=== PATIENT | female | born 1960 | race African-American/Black ===

== ENCOUNTER 2018-05-28 15:41 | Emergency (ER) | payer OTHER ==
[~2018-05-28] VITALS: Ht 160 cm; Wt 50.0 kg
[~2018-05-28 15:41] MED LIST: AMLO-511 PO; FOLI1 PO; LISI-662 PO; OXYC-38 PO
[2018-05-28] MEDS ORDERED: OxyCODONE HCL/ACETAMINOPHEN 5-325 MG TABLET PO ONE (19:00)
[2018-05-28 19:08] VITALS: BP 127/76
== END 2018-05-28 19:34 | disposition home or self-care (01) ==
LOC: EMS 15:42
DX: G89.29 Other chronic pain (principal); M54.5 Low back pain; F17.210 Nicotine dependence, cigarettes, uncomplicated; Z88.0 Allergy status to penicillin; Z88.6 Allergy status to analgesic agent
CPT/HCPCS: 99283; 99406

== ENCOUNTER 2018-07-03 06:18 | Emergency (ER) | payer OTHER ==
[~2018-07-03] VITALS: Ht 160 cm; Wt 47.7 kg
[2018-07-03] MEDS ORDERED: CALC-888 PO (06:27)
[2018-07-03] MEDS ORDERED: BECL10.62 PO (06:27)
[2018-07-03] MEDS ORDERED: MELO-108 PO (06:27)
[2018-07-03] MEDS ORDERED: CHOL200059 PO (06:27)
[2018-07-03] MEDS ORDERED: ALEN70TA69 PO (06:27)
[2018-07-03 06:34] VITALS: BP 148/75
[2018-07-03] MEDS ORDERED: OxyCODONE HCL/ACETAMINOPHEN 5-325 MG TABLET PO ONE (07:15)
== END 2018-07-03 08:01 | disposition home or self-care (01) ==
LOC: EMS 06:25
DX: M54.5 Low back pain (principal); M25.552 Pain in left hip; G89.29 Other chronic pain; F17.210 Nicotine dependence, cigarettes, uncomplicated; Z88.0 Allergy status to penicillin; Z88.6 Allergy status to analgesic agent; Z79.899 Other long term (current) drug therapy
CPT/HCPCS: 99283; 99406

== ENCOUNTER 2018-08-23 01:19 | Emergency (ER) | payer OTHER ==
[~2018-08-23] VITALS: Ht 160 cm; Wt 105.0 kg
[~2018-08-23 01:19] MED LIST changes: +ALEN70TA69 PO; +BECL10.62 PO; +CALC-888 PO; +CHOL200059 PO; +MELO-108 PO; -OXYC-38 PO
[2018-08-23 01:48] VITALS: BP 141/83
[2018-08-23] MEDS ORDERED: OxyCODONE HCL/ACETAMINOPHEN 5-325 MG TABLET PO ONE (02:00)
== END 2018-08-23 02:30 | disposition home or self-care (01) ==
LOC: EMS 01:20
DX: M16.0 Bilateral primary osteoarthritis of hip (principal); G89.29 Other chronic pain; F17.210 Nicotine dependence, cigarettes, uncomplicated; Z88.0 Allergy status to penicillin; Z88.6 Allergy status to analgesic agent

== ENCOUNTER 2018-09-26 08:21 | Emergency (ER) | payer OTHER ==
[~2018-09-26] VITALS: Ht 160 cm; Wt 50.0 kg
[2018-09-26] MEDS ORDERED: ALBUTEROL SULFATE 2.5 MG/0.5 ML NEB SOLUTION NEB ONE ×2 (08:35→09:15)
[2018-09-26] MEDS ORDERED: IPRATROPIUM BROMIDE 0.5 MG/2.5 ML NEB SOLUTION NEB ONE ×2 (08:35→09:15)
[2018-09-26] MEDS ORDERED: 0.9% SODIUM CHLORIDE 5 ML NEB SOLUTION NEB ONE (08:36)
[2018-09-26] MEDS ORDERED: PredniSONE 20 MG TABLET PO ONE (09:15)
[2018-09-26 11:01] VITALS: BP 166/76
== END 2018-09-26 11:02 | disposition home or self-care (01) ==
LOC: EMS 08:22
DX: J44.9 Chronic obstructive pulmonary disease, unspecified (principal); F17.210 Nicotine dependence, cigarettes, uncomplicated; Z88.0 Allergy status to penicillin; Z88.6 Allergy status to analgesic agent; Z79.899 Other long term (current) drug therapy
CPT/HCPCS: 94640; 99283; J7512

== ENCOUNTER 2018-11-05 12:14 | Emergency (ER) | payer OTHER ==
[~2018-11-05] VITALS: Ht 160 cm; Wt 50.0 kg
[~2018-11-05 12:14] MED LIST changes: +ALEN70TA19 PO; -ALEN70TA69 PO
[2018-11-05 12:16] VITALS: BP 151/90
[2018-11-05] MEDS ORDERED: OxyCODONE HCL/ACETAMINOPHEN 10-325 MG TABLET PO ONE (12:45)
== END 2018-11-05 13:14 | disposition home or self-care (01) ==
LOC: EMS 12:15
DX: M25.551 Pain in right hip (principal); M25.552 Pain in left hip; G89.29 Other chronic pain; I10 Essential (primary) hypertension; F17.210 Nicotine dependence, cigarettes, uncomplicated; Z88.0 Allergy status to penicillin; Z88.6 Allergy status to analgesic agent; Z79.899 Other long term (current) drug therapy
CPT/HCPCS: 99406

== ENCOUNTER 2018-11-11 19:33 | Emergency (ER) | payer OTHER ==
[~2018-11-11] VITALS: Ht 154.9 cm; Wt 63.6 kg
[2018-11-11] MEDS ORDERED: OxyCODONE HCL/ACETAMINOPHEN 5-325 MG TABLET PO ONE (20:30)
[2018-11-11 20:46] VITALS: BP 127/93
== END 2018-11-11 20:47 | disposition home or self-care (01) ==
LOC: EMS 19:34
DX: R07.89 Other chest pain (principal); M25.552 Pain in left hip; R22.2 Localized swelling, mass and lump, trunk; G89.29 Other chronic pain; M25.551 Pain in right hip; I10 Essential (primary) hypertension; F17.210 Nicotine dependence, cigarettes, uncomplicated; Z88.6 Allergy status to analgesic agent; Z88.0 Allergy status to penicillin; Z79.899 Other long term (current) drug therapy

== ENCOUNTER 2019-07-17 20:20 | Inpatient (IN) | payer MEDICAID, OTHER ==
[~2019-07-17] VITALS: Ht 157.5 cm; Wt 47.3 kg
[~2019-07-17 20:20] MED LIST changes: -ALEN70TA19 PO; -AMLO-511 PO; +AMLO5TAB9 PO; -CALC-888 PO
[2019-07-18] MEDS ORDERED: MORPHINE SULFATE 4 MG/ML SYRINGE IVP ONE (00:15)
[2019-07-18] MEDS ORDERED: HYDROmorphone 2 MG/ML SYRINGE IVP ONE (04:15)
[2019-07-18] MEDS ORDERED: ACETAMINOPHEN 325 MG TABLET PO PRN ×2 (05:15→07:30)
[2019-07-18] MEDS ORDERED: ONDANSETRON HCL 4 MG/2 ML VIAL IVP PRN ×2 (05:15→07:30)
[2019-07-18] MEDS ORDERED: 0.9% SODIUM CHLORIDE 10 ML SYRINGE IVP PRN ×2 (05:15→07:30)
[2019-07-18 05:33] LABS: BASOPHILS % (AUTO) 0.8 % (0.0-2.0); EOSINOPHILS % (AUTO) 3.9 % (1.0-6.0); HEMATOCRIT 36.8 % (36-46); HEMOGLOBIN 12.4 g/dL (12.0-16.0); LYMPHOCYTES # (AUTO) 1.8 K/uL (1.0-4.8); LYMPHOCYTES % (AUTO) 31.9 % (22.0-44.0); MEAN CORPUSCULAR HEMOGLOBIN 32.1 pg (26.0-34.0); MEAN CORPUSCULAR HGB CONC 33.7 G/dL (31.0-37.0); MEAN CORPUSCULAR VOLUME 95 fL (80-100); MONOCYTES # (AUTO) 0.3 K/uL (0.1-1.0); MONOCYTES % (AUTO) 4.8 % (2.0-9.0); NEUTROPHILS # (AUTO) 3.3 K/uL (1.8-7.7); NEUTROPHILS % (AUTO) 58.6 % (40.0-70.0); PLATELET COUNT (AUTO) 195 K/uL (150-450); RED BLOOD CELL COUNT(AUTO) 3.86 MIL/uL (4.00-5.20); RED CELL DISTRIBUTION WIDTH 15.1 % (11.5-14.5)
[2019-07-18 05:43] LABS: ANION GAP 8 mmol/L (8-16); CALCIUM, TOTAL 8.7 mg/dL (8.8-10.5); CARBON DIOXIDE 27 mmol/L (22-29); CHLORIDE 106 mmol/L (98-107); CREATININE 0.76 mg/dL (0.60-1.30); GLOMERULAR FILTR. RATE CALC > 60 mL/min (>60); GLUCOSE,RANDOM 89 mg/dL (70-110); POTASSIUM 3.4 mmol/L (3.5-5.1); SODIUM SERUM 141 mmol/L (136-145); UREA NITROGEN, BLOOD 8 mg/dL (7-18)
[2019-07-18 05:50] LABS: ALANINE AMINOTRANSFERASE 17 U/L (12-78); ALBUMIN 3.1 g/dL (3.4-5.0); ALKALINE PHOSPHATASE 69 U/L (46-116); ASPARTATE AMINOTRANSFERASE 19 U/L (15-37); BILIRUBIN,TOTAL 0.3 mg/dL (0.1-1.0); TOTAL PROTEIN, SERUM 8.3 g/dL (6.4-8.2)
[2019-07-18 06:05] VITALS: BP 190/101
[2019-07-18] MEDS ORDERED: ZOLPIDEM TARTRATE 5 MG TABLET PO PRN (07:30)
[2019-07-18] MEDS ORDERED: IPRATROPIUM BROMIDE 0.5 MG/2.5 ML NEB SOLUTION NEB PRN (07:30)
[2019-07-18] MEDS ORDERED: ALBUTEROL SULFATE 2.5 MG/0.5 ML NEB SOLUTION NEB PRN (07:30)
[2019-07-18] MEDS: ALBUTEROL SULFATE 2.5 MG/0.5 ML NEB SOLUTION NEB SCH ×3 (08:00→20:00)
[2019-07-18] MEDS: IPRATROPIUM BROMIDE 0.5 MG/2.5 ML NEB SOLUTION NEB SCH ×3 (08:00→20:00)
[2019-07-18 08:03] VITALS: BP 171/101
[2019-07-18] MEDS: CHOLECALCIFEROL (VIT D3) 2,000 UNITS TABLET PO SCH (08:58)
[2019-07-18] MEDS: AmLODIPine BESYLATE 5 MG TABLET PO SCH (08:58)
[2019-07-18] MEDS: LISINOPRIL 20 MG TABLET PO SCH (08:58)
[2019-07-18] MEDS: PANTOPRAZOLE SODIUM 40 MG DR TABLET PO SCH (08:58)
[2019-07-18] MEDS: FOLIC ACID 1 MG TABLET PO SCH (08:58)
[2019-07-18] MEDS: BECLOMETHASONE DIPR HFA 80 MCG/PUFF 10.6 GM INHALER IH SCH ×2 (09:00→21:00)
[2019-07-18] MEDS ORDERED: MORPHINE SULFATE 2 MG/ML SYRINGE IVP PRN (10:00)
[2019-07-18] MEDS ORDERED: INSULIN LISPRO 100 UNITS/ML SQ PRN (11:15)
[2019-07-18] MEDS ORDERED: DEXTROSE 50%-WATER 25 GM/50 ML SYRINGE IVP PRN (11:15)
[2019-07-18] MEDS: CloNIDine HCL 0.1 MG TABLET PO PRN ×2 (11:35→19:47)
[2019-07-18] MEDS ORDERED: POTASSIUM CHLORIDE 20 MEQ ER TABLET PO PRN (11:45)
[2019-07-18] MEDS ORDERED: POTASSIUM CHL 10 MEQ/WATER 50 ML IV PRN (11:45)
[2019-07-18 13:05] VITALS: BP 183/99
[2019-07-18] MEDS: MULTIVITAMINS WITH MINERALS, THERAPEUTIC TABLET PO SCH (13:06)
[2019-07-18] MEDS: MORPHINE SULFATE 2 MG/ML SYRINGE IVP PRN ×3 (15:03→23:18)
[2019-07-18 15:58] VITALS: BP 162/99
[2019-07-18 20:42] VITALS: BP 162/100
[2019-07-18 23:30] VITALS: BP 141/72
[2019-07-19] MEDS: IPRATROPIUM BROMIDE 0.5 MG/2.5 ML NEB SOLUTION NEB SCH ×4 (02:00→20:00)
[2019-07-19] MEDS: ALBUTEROL SULFATE 2.5 MG/0.5 ML NEB SOLUTION NEB SCH ×4 (02:00→20:00)
[2019-07-19 04:00] VITALS: BP 120/62
[2019-07-19 05:51] LABS: BASOPHILS % (AUTO) 0.4 % (0.0-2.0); EOSINOPHILS % (AUTO) 0.7 % (1.0-6.0); HEMATOCRIT 36.5 % (36-46); HEMOGLOBIN 12.5 g/dL (12.0-16.0); LYMPHOCYTES # (AUTO) 1.5 K/uL (1.0-4.8); LYMPHOCYTES % (AUTO) 23.7 % (22.0-44.0); MEAN CORPUSCULAR HEMOGLOBIN 32.4 pg (26.0-34.0); MEAN CORPUSCULAR HGB CONC 34.3 G/dL (31.0-37.0); MEAN CORPUSCULAR VOLUME 95 fL (80-100); MONOCYTES # (AUTO) 0.3 K/uL (0.1-1.0); MONOCYTES % (AUTO) 4.2 % (2.0-9.0); NEUTROPHILS # (AUTO) 4.5 K/uL (1.8-7.7); PLATELET COUNT (AUTO) 193 K/uL (150-450); RED BLOOD CELL COUNT(AUTO) 3.86 MIL/uL (4.00-5.20)
[2019-07-19 06:02] LABS: ANION GAP 7 mmol/L (8-16); CARBON DIOXIDE 28 mmol/L (22-29); CHLORIDE 104 mmol/L (98-107); CREATININE 0.74 mg/dL (0.60-1.30); GLOMERULAR FILTR. RATE CALC > 60 mL/min (>60); GLUCOSE,RANDOM 102 mg/dL (70-110); POTASSIUM 3.6 mmol/L (3.5-5.1); SODIUM SERUM 139 mmol/L (136-145); UREA NITROGEN, BLOOD 13 mg/dL (7-18)
[2019-07-19] MEDS: MORPHINE SULFATE 2 MG/ML SYRINGE IVP PRN ×3 (06:02→21:50)
[2019-07-19 07:28] VITALS: BP 144/74
[2019-07-19] MEDS: BECLOMETHASONE DIPR HFA 80 MCG/PUFF 10.6 GM INHALER IH SCH ×2 (09:00→21:00)
[2019-07-19] MEDS: LISINOPRIL 20 MG TABLET PO SCH (09:35)
[2019-07-19] MEDS: CHOLECALCIFEROL (VIT D3) 2,000 UNITS TABLET PO SCH (09:36)
[2019-07-19] MEDS: MULTIVITAMINS WITH MINERALS, THERAPEUTIC TABLET PO SCH (09:36)
[2019-07-19] MEDS: PANTOPRAZOLE SODIUM 40 MG DR TABLET PO SCH (09:36)
[2019-07-19] MEDS: AmLODIPine BESYLATE 5 MG TABLET PO SCH (09:36)
[2019-07-19] MEDS: FOLIC ACID 1 MG TABLET PO SCH (09:36)
[2019-07-19] MEDS: CloNIDine HCL 0.1 MG TABLET PO PRN (11:19)
[2019-07-19 11:26] VITALS: BP 193/94
[2019-07-19 12:16] LABS: GLUCOMETER DEV NAME(LOC) 6N.2; GLUCOSE,POINT OF CARE 85 MG/DL (70-110)
[2019-07-19 15:54] VITALS: BP 153/94
[2019-07-19 18:11] LABS: GLUCOMETER DEV NAME(LOC) 6N.2; GLUCOSE,POINT OF CARE 183 MG/DL (70-110)
[2019-07-19 19:35] VITALS: BP 122/57
[2019-07-19 23:30] VITALS: BP 137/73
[2019-07-20] MEDS: ALBUTEROL SULFATE 2.5 MG/0.5 ML NEB SOLUTION NEB SCH ×4 (02:00→20:21)
[2019-07-20] MEDS: IPRATROPIUM BROMIDE 0.5 MG/2.5 ML NEB SOLUTION NEB SCH ×4 (02:00→20:21)
[2019-07-20] MEDS: MORPHINE SULFATE 2 MG/ML SYRINGE IVP PRN ×2 (03:15→08:44)
[2019-07-20 03:50] VITALS: BP 173/77
[2019-07-20] MEDS: CloNIDine HCL 0.1 MG TABLET PO PRN (03:51)
[2019-07-20 08:01] VITALS: BP 133/88
[2019-07-20] MEDS: AmLODIPine BESYLATE 5 MG TABLET PO SCH (08:04)
[2019-07-20] MEDS: FOLIC ACID 1 MG TABLET PO SCH (08:04)
[2019-07-20] MEDS: MULTIVITAMINS WITH MINERALS, THERAPEUTIC TABLET PO SCH (08:04)
[2019-07-20] MEDS: PANTOPRAZOLE SODIUM 40 MG DR TABLET PO SCH (08:04)
[2019-07-20] MEDS: CHOLECALCIFEROL (VIT D3) 2,000 UNITS TABLET PO SCH (08:05)
[2019-07-20] MEDS: LISINOPRIL 20 MG TABLET PO SCH (08:05)
[2019-07-20] MEDS: DOCUSATE SODIUM 100 MG CAPSULE PO PRN (08:05)
[2019-07-20] MEDS: BECLOMETHASONE DIPR HFA 40 MCG/PUFF 10.6 GM INHALER IH SCH ×2 (11:23→20:05)
[2019-07-20 11:38] VITALS: BP 112/71
[2019-07-20] MEDS: OxyCODONE HCL/ACETAMINOPHEN 5-325 MG TABLET PO PRN ×2 (11:42→23:09)
[2019-07-20 15:48] VITALS: BP 134/67
[2019-07-20 20:03] VITALS: BP 120/71
[2019-07-20 23:28] VITALS: BP 131/77
[2019-07-21] MEDS: IPRATROPIUM BROMIDE 0.5 MG/2.5 ML NEB SOLUTION NEB SCH ×4 (02:00→20:00)
[2019-07-21] MEDS: ALBUTEROL SULFATE 2.5 MG/0.5 ML NEB SOLUTION NEB SCH ×4 (02:00→20:00)
[2019-07-21] MEDS: OxyCODONE HCL/ACETAMINOPHEN 5-325 MG TABLET PO PRN ×3 (05:43→18:23)
[2019-07-21 05:54] VITALS: BP 161/79
[2019-07-21 07:11] VITALS: BP 121/84
[2019-07-21] MEDS: LISINOPRIL 20 MG TABLET PO SCH (08:09)
[2019-07-21] MEDS: PANTOPRAZOLE SODIUM 40 MG DR TABLET PO SCH (08:09)
[2019-07-21] MEDS: AmLODIPine BESYLATE 5 MG TABLET PO SCH (08:09)
[2019-07-21] MEDS: FOLIC ACID 1 MG TABLET PO SCH (08:10)
[2019-07-21] MEDS: CHOLECALCIFEROL (VIT D3) 2,000 UNITS TABLET PO SCH (08:10)
[2019-07-21] MEDS: MORPHINE SULFATE 2 MG/ML SYRINGE IVP PRN ×3 (08:12→21:10)
[2019-07-21] MEDS: BECLOMETHASONE DIPR HFA 40 MCG/PUFF 10.6 GM INHALER IH SCH ×2 (08:23→21:02)
[2019-07-21] MEDS: MULTIVITAMINS WITH MINERALS, THERAPEUTIC TABLET PO SCH (08:23)
[2019-07-21 11:02] VITALS: BP 118/74
[2019-07-21 15:08] VITALS: BP 103/69
[2019-07-21 19:59] VITALS: BP 105/64
[2019-07-22 00:11] VITALS: BP 108/56
[2019-07-22] MEDS: OxyCODONE HCL/ACETAMINOPHEN 5-325 MG TABLET PO PRN ×4 (00:27→20:45)
[2019-07-22 04:00] VITALS: BP 121/76
[2019-07-22 07:57] VITALS: BP 136/77
[2019-07-22] MEDS: IPRATROPIUM BROMIDE 0.5 MG/2.5 ML NEB SOLUTION NEB SCH ×3 (08:00→20:00)
[2019-07-22] MEDS: ALBUTEROL SULFATE 2.5 MG/0.5 ML NEB SOLUTION NEB SCH ×3 (08:00→20:00)
[2019-07-22] MEDS: BECLOMETHASONE DIPR HFA 40 MCG/PUFF 10.6 GM INHALER IH SCH ×2 (08:01→20:08)
[2019-07-22] MEDS: AmLODIPine BESYLATE 5 MG TABLET PO SCH (08:02)
[2019-07-22] MEDS: FOLIC ACID 1 MG TABLET PO SCH (08:02)
[2019-07-22] MEDS: CHOLECALCIFEROL (VIT D3) 2,000 UNITS TABLET PO SCH (08:02)
[2019-07-22] MEDS: LISINOPRIL 20 MG TABLET PO SCH (08:03)
[2019-07-22] MEDS: PANTOPRAZOLE SODIUM 40 MG DR TABLET PO SCH (08:03)
[2019-07-22] MEDS: MULTIVITAMINS WITH MINERALS, THERAPEUTIC TABLET PO SCH (08:09)
[2019-07-22] MEDS: MORPHINE SULFATE 2 MG/ML SYRINGE IVP PRN ×2 (10:23→17:49)
[2019-07-22 12:35] VITALS: BP 121/65
[2019-07-22 15:49] VITALS: BP 114/74
[2019-07-22 20:17] VITALS: BP 132/69
[2019-07-23 00:40] VITALS: BP 144/77
[2019-07-23] MEDS: MORPHINE SULFATE 2 MG/ML SYRINGE IVP PRN ×2 (00:48→15:42)
[2019-07-23] MEDS: IPRATROPIUM BROMIDE 0.5 MG/2.5 ML NEB SOLUTION NEB SCH ×4 (02:00→19:15)
[2019-07-23] MEDS: ALBUTEROL SULFATE 2.5 MG/0.5 ML NEB SOLUTION NEB SCH ×4 (02:00→19:15)
[2019-07-23 04:55] VITALS: BP 163/98
[2019-07-23] MEDS: CloNIDine HCL 0.1 MG TABLET PO PRN (06:30)
[2019-07-23] MEDS: OxyCODONE HCL/ACETAMINOPHEN 5-325 MG TABLET PO PRN ×3 (06:30→18:49)
[2019-07-23 07:25] VITALS: BP 168/75
[2019-07-23] MEDS: CHOLECALCIFEROL (VIT D3) 2,000 UNITS TABLET PO SCH (08:22)
[2019-07-23] MEDS: BECLOMETHASONE DIPR HFA 40 MCG/PUFF 10.6 GM INHALER IH SCH ×2 (08:22→20:19)
[2019-07-23] MEDS: AmLODIPine BESYLATE 5 MG TABLET PO SCH (08:23)
[2019-07-23] MEDS: LISINOPRIL 20 MG TABLET PO SCH (08:23)
[2019-07-23] MEDS: FOLIC ACID 1 MG TABLET PO SCH (08:23)
[2019-07-23] MEDS: PANTOPRAZOLE SODIUM 40 MG DR TABLET PO SCH (08:23)
[2019-07-23] MEDS: DOCUSATE SODIUM 100 MG CAPSULE PO PRN (08:23)
[2019-07-23] MEDS: MULTIVITAMINS WITH MINERALS, THERAPEUTIC TABLET PO SCH (08:25)
[2019-07-23 12:29] VITALS: BP 131/83
[2019-07-23 16:36] VITALS: BP 132/69
[2019-07-23 19:39] VITALS: BP 110/57
[2019-07-24 00:24] VITALS: BP 136/77
[2019-07-24] MEDS: OxyCODONE HCL/ACETAMINOPHEN 5-325 MG TABLET PO PRN ×3 (00:58→19:54)
[2019-07-24] MEDS: IPRATROPIUM BROMIDE 0.5 MG/2.5 ML NEB SOLUTION NEB SCH ×4 (02:00→19:20)
[2019-07-24] MEDS: ALBUTEROL SULFATE 2.5 MG/0.5 ML NEB SOLUTION NEB SCH ×4 (02:00→19:20)
[2019-07-24 05:05] VITALS: BP 160/78
[2019-07-24] MEDS: MORPHINE SULFATE 2 MG/ML SYRINGE IVP PRN ×2 (05:20→13:03)
[2019-07-24 07:56] VITALS: BP 157/104
[2019-07-24] MEDS: MULTIVITAMINS WITH MINERALS, THERAPEUTIC TABLET PO SCH (09:27)
[2019-07-24] MEDS: PANTOPRAZOLE SODIUM 40 MG DR TABLET PO SCH (09:27)
[2019-07-24] MEDS: BECLOMETHASONE DIPR HFA 40 MCG/PUFF 10.6 GM INHALER IH SCH ×3 (09:27→19:58)
[2019-07-24] MEDS: LISINOPRIL 20 MG TABLET PO SCH (09:27)
[2019-07-24] MEDS: AmLODIPine BESYLATE 5 MG TABLET PO SCH (09:27)
[2019-07-24] MEDS: FOLIC ACID 1 MG TABLET PO SCH (09:27)
[2019-07-24] MEDS: CHOLECALCIFEROL (VIT D3) 2,000 UNITS TABLET PO SCH (09:28)
[2019-07-24 12:28] VITALS: BP 150/69
[2019-07-24 16:11] VITALS: BP 129/75
[2019-07-24 20:13] VITALS: BP 125/70
[2019-07-25] MEDS: ALBUTEROL SULFATE 2.5 MG/0.5 ML NEB SOLUTION NEB SCH ×3 (02:00→14:00)
[2019-07-25] MEDS: IPRATROPIUM BROMIDE 0.5 MG/2.5 ML NEB SOLUTION NEB SCH ×3 (02:00→14:00)
[2019-07-25 04:00] VITALS: BP 128/72
[2019-07-25] MEDS: MORPHINE SULFATE 2 MG/ML SYRINGE IVP PRN ×3 (04:01→16:16)
[2019-07-25 05:02] LABS: BASOPHILS % (AUTO) 0.4 % (0.0-2.0); EOSINOPHILS % (AUTO) 2.9 % (1.0-6.0); HEMATOCRIT 36.2 % (36-46); HEMOGLOBIN 12.1 g/dL (12.0-16.0); LYMPHOCYTES % (AUTO) 32.8 % (22.0-44.0); MEAN CORPUSCULAR HEMOGLOBIN 32.1 pg (26.0-34.0); MEAN CORPUSCULAR HGB CONC 33.5 G/dL (31.0-37.0); MEAN CORPUSCULAR VOLUME 96 fL (80-100); MONOCYTES # (AUTO) 0.5 K/uL (0.1-1.0); MONOCYTES % (AUTO) 7.9 % (2.0-9.0); NEUTROPHILS # (AUTO) 3.5 K/uL (1.8-7.7); PLATELET COUNT (AUTO) 256 K/uL (150-450); RED BLOOD CELL COUNT(AUTO) 3.78 MIL/uL (4.00-5.20); RED CELL DISTRIBUTION WIDTH 15.1 % (11.5-14.5)
[2019-07-25 05:13] LABS: ANION GAP 8 mmol/L (8-16); CALCIUM, TOTAL 8.8 mg/dL (8.8-10.5); CARBON DIOXIDE 28 mmol/L (22-29); CHLORIDE 104 mmol/L (98-107); CREATININE 0.67 mg/dL (0.60-1.30); GLOMERULAR FILTR. RATE CALC > 60 mL/min (>60); GLUCOSE,RANDOM 96 mg/dL (70-110); POTASSIUM 4.1 mmol/L (3.5-5.1); SODIUM SERUM 140 mmol/L (136-145); UREA NITROGEN, BLOOD 17 mg/dL (7-18)
[2019-07-25] MEDS: OxyCODONE HCL/ACETAMINOPHEN 5-325 MG TABLET PO PRN ×2 (07:07→13:49)
[2019-07-25 07:32] VITALS: BP 144/77
[2019-07-25] MEDS: PANTOPRAZOLE SODIUM 40 MG DR TABLET PO SCH (08:02)
[2019-07-25] MEDS: FOLIC ACID 1 MG TABLET PO SCH (08:02)
[2019-07-25] MEDS: MULTIVITAMINS WITH MINERALS, THERAPEUTIC TABLET PO SCH ×2 (08:02→08:10)
[2019-07-25] MEDS: AmLODIPine BESYLATE 5 MG TABLET PO SCH (08:02)
[2019-07-25] MEDS: BECLOMETHASONE DIPR HFA 40 MCG/PUFF 10.6 GM INHALER IH SCH (08:02)
[2019-07-25] MEDS: CHOLECALCIFEROL (VIT D3) 2,000 UNITS TABLET PO SCH (08:02)
[2019-07-25 09:31] VITALS: BP 131/74
[2019-07-25] MEDS: LISINOPRIL 20 MG TABLET PO SCH (11:17)
[2019-07-25 11:45] VITALS: BP_SYST 138; BP_SYST 168; BP_DIAS 78
[2019-07-25] MEDS ORDERED: LOPERAMIDE HCL 2 MG CAPSULE PO ONE (13:15)
[2019-07-25 15:29] VITALS: BP 127/75
== END 2019-07-25 17:45 | DRG 347 ==
LOC: EMS 20:21 → 4E 07-18 05:00
PROVIDERS: ADMIT Internal Medicine; ATTEND Internal Medicine
PROC: 0QS3XZZ Reposition Left Pelvic Bone, External Approach (ICD-10-PCS; principal; 2019-07-18)
DX: S32.19XA Other fracture of sacrum, initial encounter for closed fracture (principal); S32.592A Other specified fracture of left pubis, initial encounter for closed fracture; E87.6 Hypokalemia; F17.210 Nicotine dependence, cigarettes, uncomplicated; I10 Essential (primary) hypertension; W01.10XA Fall on same level from slipping, tripping and stumbling with subsequent striking against unspecified object, initial encounter; Y93.01 Activity, walking, marching and hiking; J44.9 Chronic obstructive pulmonary disease, unspecified; K80.20 Calculus of gallbladder without cholecystitis without obstruction; K59.00 Constipation, unspecified; S33.2XXA Dislocation of sacroiliac and sacrococcygeal joint, initial encounter; G89.4 Chronic pain syndrome; M16.0 Bilateral primary osteoarthritis of hip; Z82.49 Family history of ischemic heart disease and other diseases of the circulatory system; Y92.488 Other paved roadways as the place of occurrence of the external cause; Y99.8 Other external cause status; Z88.6 Allergy status to analgesic agent; Z88.0 Allergy status to penicillin; Z79.899 Other long term (current) drug therapy
CPT/HCPCS: 72100; 72131; 73503; 83735; 84132; 94640; 96374; 96375; 96376; 97116; 97162; 97166; 97530; 97535; G0378; J1170; J2270; J2405; J3535

== ENCOUNTER 2019-08-03 10:27 | Emergency (ER) | payer MEDICAID ==
[~2019-08-03] VITALS: Ht 162.6 cm; Wt 40.9 kg
[~2019-08-03 10:27] MED LIST changes: -MELO-108 PO
[2019-08-03] MEDS ORDERED: OxyCODONE HCL 5 MG IR TABLET PO ONE (11:00)
[2019-08-03] MEDS ORDERED: ZOLP5 PO (11:33)
[2019-08-03] MEDS ORDERED: PANT40TA25 PO (11:33)
[2019-08-03 11:58] LABS: ANION GAP 7 mmol/L (8-16); CALCIUM, TOTAL 8.6 mg/dL (8.8-10.5); CARBON DIOXIDE 28 mmol/L (22-29); CHLORIDE 107 mmol/L (98-107); CREATININE 0.72 mg/dL (0.60-1.30); GLOMERULAR FILTR. RATE CALC > 60 mL/min (>60); GLUCOSE,RANDOM 79 mg/dL (70-110); SODIUM SERUM 142 mmol/L (136-145); UREA NITROGEN, BLOOD 18 mg/dL (7-18)
[2019-08-03] MEDS ORDERED: HYDROmorphone 2 MG/ML SYRINGE IVP ONE (12:30)
[2019-08-03] MEDS ORDERED: IOVERSOL 350 MG/ML 100 ML VIAL ONE (12:34)
[2019-08-03] MEDS ORDERED: SODIUM CHLORIDE 0.9% 100 ML ONE (12:34)
[2019-08-03 15:07] VITALS: BP 134/71
== END 2019-08-03 15:20 | disposition home or self-care (01) ==
LOC: EMS 10:28
DX: S32.592A Other specified fracture of left pubis, initial encounter for closed fracture (principal); S32.19XA Other fracture of sacrum, initial encounter for closed fracture; I10 Essential (primary) hypertension; G89.29 Other chronic pain; M54.9 Dorsalgia, unspecified; J44.9 Chronic obstructive pulmonary disease, unspecified; K21.9 Gastro-esophageal reflux disease without esophagitis; M19.90 Unspecified osteoarthritis, unspecified site; F17.210 Nicotine dependence, cigarettes, uncomplicated; Z98.890 Other specified postprocedural states; Z79.899 Other long term (current) drug therapy; Z88.0 Allergy status to penicillin; Z88.6 Allergy status to analgesic agent; W18.39XA Other fall on same level, initial encounter; Y93.89 Activity, other specified; Y92.89 Other specified places as the place of occurrence of the external cause; Y99.8 Other external cause status
CPT/HCPCS: 36415; 73701; 74177; 80048; 96374; 99284; J1170; J7050; Q9967

== ENCOUNTER 2019-09-02 10:02 | Emergency (ER) | payer MEDICAID ==
[~2019-09-02] VITALS: Ht 160 cm; Wt 54.5 kg
[~2019-09-02 10:02] MED LIST changes: +PANT40TA25 PO; +ZOLP5 PO
[2019-09-02 12:09] VITALS: BP 142/75
== END 2019-09-02 12:11 | disposition home or self-care (01) ==
LOC: EMS 10:04
DX: G89.29 Other chronic pain (principal); R10.2 Pelvic and perineal pain; F32.9 Major depressive disorder, single episode, unspecified; J44.9 Chronic obstructive pulmonary disease, unspecified; K21.9 Gastro-esophageal reflux disease without esophagitis; I10 Essential (primary) hypertension; F17.210 Nicotine dependence, cigarettes, uncomplicated; Z87.81 Personal history of (healed) traumatic fracture; Z79.899 Other long term (current) drug therapy; Z88.6 Allergy status to analgesic agent; Z88.0 Allergy status to penicillin

== ENCOUNTER 2020-04-24 15:15 | Inpatient (IN) | payer MEDICAID, OTHER ==
[~2020-04-24] VITALS: Ht 160 cm; Wt 47.5 kg
[~2020-04-24 15:15] MED LIST changes: +AMLO-257 PO; -AMLO5TAB9 PO; +CHOL200016 PO; -CHOL200059 PO; +FOLI-130 PO; -FOLI1 PO; +PANT-31 PO; -PANT40TA25 PO; +ZOLP-280 PO; -ZOLP5 PO
[2020-04-24] MEDS ORDERED: PERCT PO (15:21)
[2020-04-24] MEDS ORDERED: OxyCODONE HCL/ACETAMINOPHEN 5-325 MG TABLET PO ONE (16:30)
[2020-04-24] MEDS ORDERED: LIDOCAINE 1% 10 ML VIAL INJ ONE (17:30)
[2020-04-24] MEDS ORDERED: FentaNYL CITRATE-PF 100 MCG/2 ML VIAL IVP ONE (18:15)
[2020-04-24] MEDS ORDERED: HYDROmorphone 2 MG/ML SYRINGE IVP ONE ×2 (18:15→18:45)
[2020-04-24] MEDS ORDERED: 0.9% SODIUM CHLORIDE 10 ML SYRINGE IVP PRN ×2 (18:45→19:15)
[2020-04-24] MEDS ORDERED: ONDANSETRON HCL 4 MG/2 ML VIAL IVP PRN (18:45)
[2020-04-24] MEDS ORDERED: ACETAMINOPHEN 325 MG TABLET PO PRN (18:45)
[2020-04-24 19:02] LABS: BASOPHILS % (AUTO) 0.8 % (0.0-2.0); EOSINOPHILS % (AUTO) 1.5 % (1.0-6.0); HEMATOCRIT 34.1 % (36-46); HEMOGLOBIN 11.2 g/dL (12.0-16.0); LYMPHOCYTES # (AUTO) 1.5 K/uL (1.0-4.8); LYMPHOCYTES % (AUTO) 22.5 % (22.0-44.0); MEAN CORPUSCULAR HEMOGLOBIN 32.7 pg (26.0-34.0); MEAN CORPUSCULAR HGB CONC 32.9 G/dL (31.0-37.0); MEAN CORPUSCULAR VOLUME 99 fL (80-100); MONOCYTES # (AUTO) 0.3 K/uL (0.1-1.0); MONOCYTES % (AUTO) 4.3 % (2.0-9.0); NEUTROPHILS # (AUTO) 4.6 K/uL (1.8-7.7); NEUTROPHILS % (AUTO) 70.9 % (40.0-70.0); PLATELET COUNT (AUTO) 242 K/uL (150-450); RED BLOOD CELL COUNT(AUTO) 3.43 MIL/uL (4.00-5.20); RED CELL DISTRIBUTION WIDTH 14.5 % (11.5-14.5)
[2020-04-24 19:15] LABS: PROTHROMBIN TIME 10.8 SEC (9.4-11.6)
[2020-04-24] MEDS ORDERED: HydrALAZINE HCL 20 MG/ML VIAL IVP PRN (19:30)
[2020-04-24] MEDS ORDERED: LORazepam 2 MG/ML VIAL IVP ONE ×2 (19:45)
[2020-04-24] MEDS ORDERED: HydrALAZINE HCL 20 MG/ML VIAL IVP ONE (19:45)
[2020-04-24 22:08] VITALS: BP 156/82
[2020-04-24] MEDS: ZOLPIDEM TARTRATE 5 MG TABLET PO SCH (22:17)
[2020-04-24] MEDS: BECLOMETHASONE DIPR HFA 80 MCG/PUFF 10.6 GM INHALER IH SCH (22:17)
[2020-04-24] MEDS: HEPARIN SODIUM,PORCINE 5,000 UNITS/ML VIAL SQ SCH (23:34)
[2020-04-25] VITALS (9 sets, daily range): BP systolic 147–204; BP diastolic 74–117
[2020-04-25] MEDS: OxyCODONE HCL/ACETAMINOPHEN 10-325 MG TABLET PO PRN ×3 (03:18→21:04)
[2020-04-25 06:28] LABS: BASOPHILS % (AUTO) 0.5 % (0.0-2.0); EOSINOPHILS % (AUTO) 1.1 % (1.0-6.0); HEMATOCRIT 32.6 % (36-46); HEMOGLOBIN 11.4 g/dL (12.0-16.0); LYMPHOCYTES # (AUTO) 1.4 K/uL (1.0-4.8); LYMPHOCYTES % (AUTO) 24.5 % (22.0-44.0); MEAN CORPUSCULAR HGB CONC 34.9 G/dL (31.0-37.0); MEAN CORPUSCULAR VOLUME 98 fL (80-100); MONOCYTES # (AUTO) 0.4 K/uL (0.1-1.0); MONOCYTES % (AUTO) 6.2 % (2.0-9.0); NEUTROPHILS # (AUTO) 3.8 K/uL (1.8-7.7); NEUTROPHILS % (AUTO) 67.7 % (40.0-70.0); PLATELET COUNT (AUTO) 238 K/uL (150-450); RED BLOOD CELL COUNT(AUTO) 3.34 MIL/uL (4.00-5.20); RED CELL DISTRIBUTION WIDTH 14.2 % (11.5-14.5)
[2020-04-25 07:21] LABS: ALANINE AMINOTRANSFERASE 13 U/L (12-78); ALBUMIN 2.7 g/dL (3.4-5.0); ALKALINE PHOSPHATASE 67 U/L (46-116); ANION GAP 9 mmol/L (8-16); ASPARTATE AMINOTRANSFERASE 16 U/L (15-37); BILIRUBIN,TOTAL 0.2 mg/dL (0.1-1.0); CALCIUM, TOTAL 9.1 mg/dL (8.8-10.5); CARBON DIOXIDE 25 mmol/L (22-29); CHLORIDE 103 mmol/L (98-107); CREATININE 0.82 mg/dL (0.60-1.30); GLOMERULAR FILTR. RATE CALC > 60 mL/min (>60); GLUCOSE,RANDOM 101 mg/dL (70-110); POTASSIUM 3.3 mmol/L (3.5-5.1); SODIUM SERUM 137 mmol/L (136-145); TOTAL PROTEIN, SERUM 9.5 g/dL (6.4-8.2); UREA NITROGEN, BLOOD 10 mg/dL (7-18)
[2020-04-25] MEDS: HEPARIN SODIUM,PORCINE 5,000 UNITS/ML VIAL SQ SCH ×3 (08:00→23:44)
[2020-04-25] MEDS: PANTOPRAZOLE SODIUM 40 MG DR TABLET PO SCH (08:43)
[2020-04-25] MEDS: FOLIC ACID 1 MG TABLET PO SCH (08:43)
[2020-04-25] MEDS: LISINOPRIL 20 MG TABLET PO SCH (08:43)
[2020-04-25] MEDS: CHOLECALCIFEROL (VIT D3) 2,000 UNITS [50 MCG] TABLET PO SCH (08:43)
[2020-04-25] MEDS: BECLOMETHASONE DIPR HFA 80 MCG/PUFF 10.6 GM INHALER IH SCH ×2 (08:44→20:56)
[2020-04-25] MEDS ORDERED: AmLODIPine BESYLATE 5 MG TABLET PO SCH (09:00)
[2020-04-25] MEDS ORDERED: POTASSIUM CHLORIDE 20 MEQ ER TABLET PO PRN (09:45)
[2020-04-25] MEDS ORDERED: POTASSIUM CHL 10 MEQ/WATER 50 ML IV PRN (09:45)
[2020-04-25] MEDS ORDERED: SODIUM CHLORIDE 0.9% 1,000 ML IV ONE (10:00)
[2020-04-25] MEDS: CloNIDine HCL 0.1 MG TABLET PO PRN ×2 (12:16→21:18)
[2020-04-25] MEDS: MORPHINE SULFATE 2 MG/ML SYRINGE IVP PRN ×2 (12:17→18:12)
[2020-04-25] MEDS: ZOLPIDEM TARTRATE 5 MG TABLET PO SCH (20:57)
[2020-04-26 00:33] VITALS: BP 139/74
[2020-04-26] MEDS: MORPHINE SULFATE 2 MG/ML SYRINGE IVP PRN ×3 (01:15→08:49)
[2020-04-26] MEDS ORDERED: LIDOCAINE 1%/EPI 1:200,000/PF 10 ML VIAL INJ ONE ×2 (02:15→09:00)
[2020-04-26 05:30] VITALS: BP 159/82
[2020-04-26] MEDS: PANTOPRAZOLE SODIUM 40 MG DR TABLET PO SCH (08:47)
[2020-04-26] MEDS: AmLODIPine BESYLATE 10 MG TABLET PO SCH (08:47)
[2020-04-26] MEDS: LISINOPRIL 20 MG TABLET PO SCH (08:47)
[2020-04-26] MEDS: CHOLECALCIFEROL (VIT D3) 2,000 UNITS [50 MCG] TABLET PO SCH (08:47)
[2020-04-26] MEDS: FOLIC ACID 1 MG TABLET PO SCH (08:47)
[2020-04-26] MEDS: BECLOMETHASONE DIPR HFA 80 MCG/PUFF 10.6 GM INHALER IH SCH ×2 (08:48→21:06)
[2020-04-26] MEDS: HEPARIN SODIUM,PORCINE 5,000 UNITS/ML VIAL SQ SCH ×2 (08:48→16:29)
[2020-04-26 08:50] VITALS: BP 157/88
[2020-04-26] MEDS: HYDROmorphone 2 MG/ML SYRINGE IVP PRN ×3 (10:04→20:15)
[2020-04-26] MEDS: OxyCODONE HCL/ACETAMINOPHEN 10-325 MG TABLET PO PRN (12:02)
[2020-04-26 16:22] VITALS: BP 162/79
[2020-04-26 20:30] VITALS: BP 184/85
[2020-04-26] MEDS: CloNIDine HCL 0.1 MG TABLET PO PRN (21:03)
[2020-04-27] VITALS (8 sets, daily range): BP systolic 127–176; BP diastolic 72–86
[2020-04-27] MEDS: HEPARIN SODIUM,PORCINE 5,000 UNITS/ML VIAL SQ SCH ×4 (00:26→23:18)
[2020-04-27] MEDS: ZOLPIDEM TARTRATE 5 MG TABLET PO SCH ×2 (00:26→23:17)
[2020-04-27] MEDS: OxyCODONE HCL/ACETAMINOPHEN 10-325 MG TABLET PO PRN ×2 (00:29→12:25)
[2020-04-27] MEDS: HYDROmorphone 2 MG/ML SYRINGE IVP PRN ×4 (05:19→21:07)
[2020-04-27] MEDS: AmLODIPine BESYLATE 10 MG TABLET PO SCH (08:22)
[2020-04-27] MEDS: LISINOPRIL 20 MG TABLET PO SCH (08:22)
[2020-04-27] MEDS: PANTOPRAZOLE SODIUM 40 MG DR TABLET PO SCH (08:23)
[2020-04-27] MEDS: FOLIC ACID 1 MG TABLET PO SCH (08:23)
[2020-04-27] MEDS: BECLOMETHASONE DIPR HFA 80 MCG/PUFF 10.6 GM INHALER IH SCH ×2 (09:00→21:00)
[2020-04-27] MEDS: CHOLECALCIFEROL (VIT D3) 2,000 UNITS [50 MCG] TABLET PO SCH (12:16)
[2020-04-27] MEDS: ONDANSETRON HCL 4 MG/2 ML VIAL IVP PRN (21:07)
[2020-04-28] MEDS: OxyCODONE HCL/ACETAMINOPHEN 10-325 MG TABLET PO PRN ×3 (01:33→20:02)
[2020-04-28 04:05] VITALS: BP 144/83
[2020-04-28] MEDS: ONDANSETRON HCL 4 MG/2 ML VIAL IVP PRN (04:59)
[2020-04-28] MEDS: HYDROmorphone 2 MG/ML SYRINGE IVP PRN ×3 (04:59→16:22)
[2020-04-28 08:49] VITALS: BP 142/92
[2020-04-28] MEDS: LISINOPRIL 20 MG TABLET PO SCH (09:00)
[2020-04-28] MEDS: FOLIC ACID 1 MG TABLET PO SCH (09:00)
[2020-04-28] MEDS: HEPARIN SODIUM,PORCINE 5,000 UNITS/ML VIAL SQ SCH ×2 (09:00→16:22)
[2020-04-28] MEDS: AmLODIPine BESYLATE 10 MG TABLET PO SCH (09:00)
[2020-04-28] MEDS: CHOLECALCIFEROL (VIT D3) 2,000 UNITS [50 MCG] TABLET PO SCH (09:00)
[2020-04-28] MEDS: PANTOPRAZOLE SODIUM 40 MG DR TABLET PO SCH (09:00)
[2020-04-28] MEDS: BECLOMETHASONE DIPR HFA 80 MCG/PUFF 10.6 GM INHALER IH SCH ×2 (09:01→21:07)
[2020-04-28 11:36] VITALS: BP 136/80
[2020-04-28 15:49] VITALS: BP 144/87
[2020-04-28 19:45] VITALS: BP 143/69
[2020-04-28] MEDS: ZOLPIDEM TARTRATE 5 MG TABLET PO SCH ×2 (20:02→21:07)
[2020-04-28 23:35] VITALS: BP 137/77
[2020-04-29] MEDS: HEPARIN SODIUM,PORCINE 5,000 UNITS/ML VIAL SQ SCH ×3 (00:55→16:00)
[2020-04-29] MEDS: OxyCODONE HCL/ACETAMINOPHEN 10-325 MG TABLET PO PRN ×4 (02:33→16:42)
[2020-04-29 05:05] VITALS: BP 182/78
[2020-04-29] MEDS: CloNIDine HCL 0.1 MG TABLET PO PRN (05:25)
[2020-04-29] MEDS: HYDROmorphone 2 MG/ML SYRINGE IVP PRN (05:30)
[2020-04-29 08:35] VITALS: BP 142/64
[2020-04-29] MEDS: AmLODIPine BESYLATE 10 MG TABLET PO SCH (09:04)
[2020-04-29] MEDS: CHOLECALCIFEROL (VIT D3) 2,000 UNITS [50 MCG] TABLET PO SCH (09:04)
[2020-04-29] MEDS: PANTOPRAZOLE SODIUM 40 MG DR TABLET PO SCH (09:04)
[2020-04-29] MEDS: FOLIC ACID 1 MG TABLET PO SCH (09:04)
[2020-04-29] MEDS: LISINOPRIL 20 MG TABLET PO SCH (09:05)
[2020-04-29] MEDS: BECLOMETHASONE DIPR HFA 80 MCG/PUFF 10.6 GM INHALER IH SCH (09:08)
[2020-04-29 11:36] VITALS: BP 113/62
[2020-04-29 15:44] VITALS: BP 150/62
== END 2020-04-29 19:08 | DRG 342 ==
LOC: EMS 15:21 → 6N 18:40
PROVIDERS: ADMIT Internal Medicine; ATTEND Internal Medicine
PROC: 2W39X1Z Immobilization of Left Upper Extremity using Splint (ICD-10-PCS; principal; 2020-04-26)
PROC: 2W38X1Z Immobilization of Right Upper Extremity using Splint (ICD-10-PCS; 2020-04-26)
PROC: 0PSHXZZ Reposition Right Radius, External Approach (ICD-10-PCS; 2020-04-26)
PROC: 0PSKXZZ Reposition Right Ulna, External Approach (ICD-10-PCS; 2020-04-26)
DX: S52.612A Displaced fracture of left ulna styloid process, initial encounter for closed fracture (principal); S52.551A Other extraarticular fracture of lower end of right radius, initial encounter for closed fracture; E87.6 Hypokalemia; S52.691A Other fracture of lower end of right ulna, initial encounter for closed fracture; I10 Essential (primary) hypertension; E43 Unspecified severe protein-calorie malnutrition; I16.0 Hypertensive urgency; F17.210 Nicotine dependence, cigarettes, uncomplicated; J44.9 Chronic obstructive pulmonary disease, unspecified; M16.0 Bilateral primary osteoarthritis of hip; M81.0 Age-related osteoporosis without current pathological fracture; Z68.1 Body mass index [BMI] 19.9 or less, adult; Z82.49 Family history of ischemic heart disease and other diseases of the circulatory system; Z88.6 Allergy status to analgesic agent; Z88.0 Allergy status to penicillin; Z20.828 Contact with and (suspected) exposure to other viral communicable diseases; W18.39XA Other fall on same level, initial encounter; Y93.89 Activity, other specified; Y92.89 Other specified places as the place of occurrence of the external cause; Y99.8 Other external cause status
CPT/HCPCS: 70450; 84132; 86850; 86900; 86901; 97110; 97162; 97167; 97530; 97535; G0378; J0360; J1170; J1644; J2060; J2270; J2405; J3010; J3490; J3535; J7030

== ENCOUNTER 2020-06-14 09:52 | Emergency (ER) | payer OTHER ==
[~2020-06-14] VITALS: Ht 162.6 cm; Wt 61.4 kg
[~2020-06-14 09:52] MED LIST changes: +PERCT PO
[2020-06-14] MEDS ORDERED: OxyCODONE HCL/ACETAMINOPHEN 5-325 MG TABLET PO ONE (10:30)
[2020-06-14 11:32] VITALS: BP 140/90
== END 2020-06-14 11:46 | disposition home or self-care (01) ==
LOC: EMS 09:52
DX: M16.12 Unilateral primary osteoarthritis, left hip (principal); M25.552 Pain in left hip; G89.29 Other chronic pain; J44.9 Chronic obstructive pulmonary disease, unspecified; K21.9 Gastro-esophageal reflux disease without esophagitis; I10 Essential (primary) hypertension; F17.210 Nicotine dependence, cigarettes, uncomplicated; Z88.6 Allergy status to analgesic agent; Z88.0 Allergy status to penicillin; Z79.899 Other long term (current) drug therapy; W01.0XXA Fall on same level from slipping, tripping and stumbling without subsequent striking against object, initial encounter; Y93.89 Activity, other specified; Y92.59 Other trade areas as the place of occurrence of the external cause; Y99.8 Other external cause status
CPT/HCPCS: 73503

== ENCOUNTER 2020-12-11 14:42 | Emergency (ER) | payer OTHER ==
[~2020-12-11] VITALS: Ht 157.5 cm; Wt 47.7 kg
[~2020-12-11 14:42] MED LIST changes: +ACET-3207 PO; +ALBU8HFA IH; -AMLO-257 PO; +AMLO-258 PO; -BECL10.62 PO; -CHOL200016 PO; -FOLI-130 PO; +FURO20 PO; +LABE100T8 PO; -LISI-662 PO; +LISI-894 PO; +METH4TAB3 PO; +OXYC-601 PO; -PANT-31 PO; -PERCT PO; +VARE0.5T PO; -ZOLP-280 PO
[2020-12-11] MEDS ORDERED: OxyCODONE HCL/ACETAMINOPHEN 5-325 MG TABLET PO ONE (15:30)
[2020-12-11 15:35] VITALS: BP 144/83
== END 2020-12-11 15:42 | disposition home or self-care (01) ==
LOC: EMS 14:46
DX: I10 Essential (primary) hypertension (principal); F17.210 Nicotine dependence, cigarettes, uncomplicated; Z88.0 Allergy status to penicillin; Z88.6 Allergy status to analgesic agent; Z79.899 Other long term (current) drug therapy
CPT/HCPCS: 99283

== ENCOUNTER 2021-02-05 00:06 | Emergency (ER) | payer OTHER ==
[~2021-02-05] VITALS: Ht 160 cm; Wt 52.3 kg
[2021-02-05 00:47] LABS: BASOPHILS % (AUTO) 0.5 % (0.0-2.0); EOSINOPHILS % (AUTO) 4.3 % (1.0-6.0); HEMATOCRIT 29.2 % (36-46); HEMOGLOBIN 9.7 g/dL (12.0-16.0); LYMPHOCYTES # (AUTO) 3.1 K/uL (1.0-4.8); LYMPHOCYTES % (AUTO) 42.1 % (22.0-44.0); MEAN CORPUSCULAR HEMOGLOBIN 29.4 pg (26.0-34.0); MEAN CORPUSCULAR HGB CONC 33.3 G/dL (31.0-37.0); MEAN CORPUSCULAR VOLUME 88 fL (80-100); MONOCYTES # (AUTO) 0.4 K/uL (0.1-1.0); MONOCYTES % (AUTO) 5.6 % (2.0-9.0); NEUTROPHILS # (AUTO) 3.4 K/uL (1.8-7.7); NEUTROPHILS % (AUTO) 47.5 % (40.0-70.0); PLATELET COUNT (AUTO) 484 K/uL (150-450); RED CELL DISTRIBUTION WIDTH 18.3 % (11.5-14.5)
[2021-02-05 00:57] LABS: ANION GAP 8 mmol/L (8-16); CALCIUM, TOTAL 9.2 mg/dL (8.8-10.5); CARBON DIOXIDE 25 mmol/L (22-29); CHLORIDE 103 mmol/L (98-107); GLOMERULAR FILTR. RATE CALC > 60 mL/min (>60); GLUCOSE,RANDOM 95 mg/dL (70-110); POTASSIUM 3.3 mmol/L (3.5-5.1); SODIUM SERUM 136 mmol/L (136-145); UREA NITROGEN, BLOOD 16 mg/dL (7-18)
[2021-02-05] MEDS ORDERED: CloNIDine HCL 0.2 MG TABLET PO ONE (01:00)
[2021-02-05 01:02] LABS: ALANINE AMINOTRANSFERASE 20 U/L (12-78); ALKALINE PHOSPHATASE 88 U/L (46-116); ASPARTATE AMINOTRANSFERASE 16 U/L (15-37); BILIRUBIN,TOTAL 0.1 mg/dL (0.1-1.0); TOTAL PROTEIN, SERUM 11.3 g/dL (6.4-8.2)
[2021-02-05 01:52] LABS: APPEARANCE,URINE CLOUDY (CLEAR); BILIRUBIN,URINE NEGATIVE (NEGATIVE); GLUCOSE, URINE (UA) NEGATIVE (NEGATIVE); KETONES,URINE NEGATIVE (NEGATIVE); LEUKOCYTE ESTERASE ,URINE MODERATE (NEGATIVE); NITRATE,URINE NEGATIVE (NEGATIVE); OCCULT BLOOD,URINE LARGE (NEGATIVE); PROTEIN,URINE SEE CONFIRM (NEGATIVE); UROBILINOGEN,URINE 0.2 mg/dL (<=1.0)
[2021-02-05 02:02] LABS: SULFOSALICYLIC ACID,URINE 3+ (Negative)
[2021-02-05 02:03] LABS: BACTERIA,URINE Few /HPF (None Seen); SQUAMOUS EPITHELIAL CELL,UR Moderate /LPF (None Seen)
[2021-02-05] MEDS ORDERED: POTASSIUM CHLORIDE 20 MEQ ER TABLET PO ONE (04:00)
[2021-02-05] MEDS ORDERED: OxyCODONE HCL/ACETAMINOPHEN 10-325 MG TABLET PO ONE (04:15)
[2021-02-05 04:30] VITALS: BP 140/77
== END 2021-02-05 05:00 | disposition home or self-care (01) ==
LOC: EMS 00:07
DX: G89.29 Other chronic pain (principal); R06.02 Shortness of breath; E87.6 Hypokalemia; J44.9 Chronic obstructive pulmonary disease, unspecified; K21.9 Gastro-esophageal reflux disease without esophagitis; I10 Essential (primary) hypertension; F17.210 Nicotine dependence, cigarettes, uncomplicated; Z79.899 Other long term (current) drug therapy; Z88.6 Allergy status to analgesic agent; Z88.0 Allergy status to penicillin
CPT/HCPCS: 71045; 80053; 81001; 81002; 84484; 85025; 87086; 93005; 99285; 36415-L1; 36415-TC

== ENCOUNTER 2021-05-19 16:28 | Emergency (ER) | payer OTHER ==
[~2021-05-19] VITALS: Ht 160 cm; Wt 52.3 kg
[~2021-05-19 16:28] MED LIST changes: +LABE100T51 PO; -LABE100T8 PO
[2021-05-19 18:40] LABS: BASOPHILS % (AUTO) 0.1 % (0.0-2.0); HEMATOCRIT 25.4 % (36-46); HEMOGLOBIN 8.3 g/dL (12.0-16.0); LYMPHOCYTES % (AUTO) 20.8 % (22.0-44.0); MEAN CORPUSCULAR HEMOGLOBIN 30.6 pg (26.0-34.0); MEAN CORPUSCULAR HGB CONC 32.8 G/dL (31.0-37.0); MEAN CORPUSCULAR VOLUME 93 fL (80-100); MONOCYTES # (AUTO) 0.5 K/uL (0.1-1.0); MONOCYTES % (AUTO) 5.1 % (2.0-9.0); NEUTROPHILS # (AUTO) 6.9 K/uL (1.8-7.7); PLATELET COUNT (AUTO) 271 K/uL (150-450); RED BLOOD CELL COUNT(AUTO) 2.72 MIL/uL (4.00-5.20); RED CELL DISTRIBUTION WIDTH 17.9 % (11.5-14.5)
[2021-05-19 18:56] LABS: ANION GAP 6 mmol/L (8-16); CARBON DIOXIDE 26 mmol/L (22-29); CHLORIDE 107 mmol/L (98-107); CREATININE 0.83 mg/dL (0.60-1.30); GLOMERULAR FILTR. RATE CALC > 60 mL/min (>60); GLUCOSE,RANDOM 93 mg/dL (70-110); POTASSIUM 3.7 mmol/L (3.5-5.1); SODIUM SERUM 139 mmol/L (136-145); UREA NITROGEN, BLOOD 12 mg/dL (7-18)
[2021-05-19 19:06] LABS: B-TYPE NATRIURETIC PEPTIDE 218 pg/mL (0-100)
[2021-05-19 19:07] LABS: COVID AG,FIA SOURCE NASOPHARYNGEAL
[2021-05-19 19:21] LABS: ALANINE AMINOTRANSFERASE 19 U/L (12-78); ALBUMIN 2.2 g/dL (3.4-5.0); ALKALINE PHOSPHATASE 70 U/L (46-116); ASPARTATE AMINOTRANSFERASE 18 U/L (15-37); BILIRUBIN,TOTAL 0.2 mg/dL (0.1-1.0); CREATINE KINASE, TOTAL ONLY 82 U/L (26-192); TOTAL PROTEIN, SERUM 10.8 g/dL (6.4-8.2)
[2021-05-19 20:05] LABS: APPEARANCE,URINE CLOUDY (CLEAR); BILIRUBIN,URINE NEGATIVE (NEGATIVE); GLUCOSE, URINE (UA) NEGATIVE (NEGATIVE); KETONES,URINE NEGATIVE (NEGATIVE); LEUKOCYTE ESTERASE ,URINE SMALL (NEGATIVE); NITRATE,URINE NEGATIVE (NEGATIVE); OCCULT BLOOD,URINE LARGE (NEGATIVE); PH,URINE 5.5 (5.0-8.0); PROTEIN,URINE SEE CONFIRM (NEGATIVE); UROBILINOGEN,URINE 0.2 mg/dL (<=1.0)
[2021-05-19 20:14] LABS: BACTERIA,URINE Rare /HPF (None Seen); SQUAMOUS EPITHELIAL CELL,UR Few /LPF (None Seen); SULFOSALICYLIC ACID,URINE 2+ (Negative)
[2021-05-19] MEDS ORDERED: ALBUTEROL SULFATE HFA 90 MCG/PUFF 8 GM INHALER IH ONE (21:00)
[2021-05-19] MEDS ORDERED: PredniSONE 20 MG TABLET PO ONE (21:00)
[2021-05-19 21:46] VITALS: BP 155/87
== END 2021-05-19 22:06 | disposition home or self-care (01) ==
LOC: EMS 16:32
DX: J44.1 Chronic obstructive pulmonary disease with (acute) exacerbation (principal); I10 Essential (primary) hypertension; Z88.0 Allergy status to penicillin; Z88.6 Allergy status to analgesic agent; F17.210 Nicotine dependence, cigarettes, uncomplicated; Z20.822 Contact with and (suspected) exposure to COVID-19
CPT/HCPCS: 36415; 71045; 80053; 81001; 82550; 83880; 84484; 85025; 87086; 87426; 93005; 94640; 99285; J7512; 81002; J3535

== ENCOUNTER 2021-06-15 06:28 | Emergency (ER) | payer OTHER ==
[~2021-06-15] VITALS: Ht 160 cm; Wt 52.2 kg
[~2021-06-15 06:28] MED LIST changes: +OXYC-490 PO; -OXYC-601 PO
[2021-06-15] MEDS ORDERED: ONDANSETRON HCL 4 MG/2 ML VIAL IVP ONE (07:00)
[2021-06-15] MEDS ORDERED: MORPHINE SULFATE 4 MG/ML SYRINGE IVP ONE (07:00)
[2021-06-15] MEDS ORDERED: NITROGLYCERIN 2% (1 GM=INCH) PACKET TP ONE (07:15)
[2021-06-15 07:32] LABS: BASOPHILS % (AUTO) 0.3 % (0.0-2.0); EOSINOPHILS % (AUTO) 1.5 % (1.0-6.0); HEMATOCRIT 26.6 % (36-46); HEMOGLOBIN 8.6 g/dL (12.0-16.0); LYMPHOCYTES # (AUTO) 1.8 K/uL (1.0-4.8); LYMPHOCYTES % (AUTO) 22.3 % (22.0-44.0); MEAN CORPUSCULAR HEMOGLOBIN 30.8 pg (26.0-34.0); MEAN CORPUSCULAR HGB CONC 32.4 G/dL (31.0-37.0); MEAN CORPUSCULAR VOLUME 95 fL (80-100); MONOCYTES # (AUTO) 0.4 K/uL (0.1-1.0); MONOCYTES % (AUTO) 4.4 % (2.0-9.0); NEUTROPHILS # (AUTO) 5.7 K/uL (1.8-7.7); NEUTROPHILS % (AUTO) 71.5 % (40.0-70.0); PLATELET COUNT (AUTO) 224 K/uL (150-450); RED BLOOD CELL COUNT(AUTO) 2.79 MIL/uL (4.00-5.20); RED CELL DISTRIBUTION WIDTH 18.3 % (11.5-14.5)
[2021-06-15 07:43] LABS: PROTHROMBIN TIME 10.7 SEC (9.4-11.6)
[2021-06-15 07:44] LABS: CALCIUM, TOTAL 8.7 mg/dL (8.8-10.5); CREATININE 1.14 mg/dL (0.60-1.30); POTASSIUM 3.9 mmol/L (3.5-5.1)
[2021-06-15 07:48] LABS: COVID AG,FIA SOURCE NASOPHARYNGEAL
[2021-06-15 07:54] LABS: GLUCOSE,POINT OF CARE 98 MG/DL (70-110)
[2021-06-15 08:01] LABS: ALBUMIN 2.6 g/dL (3.4-5.0); BILIRUBIN,TOTAL 0.3 mg/dL (0.1-1.0); TOTAL PROTEIN, SERUM 11.5 g/dL (6.4-8.2)
[2021-06-15] MEDS ORDERED: HYDROmorphone 2 MG/ML VIAL IM ONE (08:45)
[2021-06-15] MEDS ORDERED: AZITHROMYCIN 500 MG TABLET PO ONE (09:00)
[2021-06-15] MEDS ORDERED: PredniSONE 20 MG TABLET PO ONE (09:00)
[2021-06-15 10:57] VITALS: BP 119/81
== END 2021-06-15 10:56 | disposition home or self-care (01) ==
LOC: EMS 06:29
DX: S20.212A Contusion of left front wall of thorax, initial encounter (principal); J44.9 Chronic obstructive pulmonary disease, unspecified; K21.9 Gastro-esophageal reflux disease without esophagitis; I10 Essential (primary) hypertension; Z20.822 Contact with and (suspected) exposure to COVID-19; Z87.891 Personal history of nicotine dependence; Z79.899 Other long term (current) drug therapy; Z88.6 Allergy status to analgesic agent; Z88.0 Allergy status to penicillin; W19.XXXA Unspecified fall, initial encounter; Y93.89 Activity, other specified; Y92.832 Beach as the place of occurrence of the external cause; Y99.8 Other external cause status
CPT/HCPCS: 36415; 71045; 80053; 82962; 83690; 83880; 84484; 85025; 85610; 87426; 93005; 96372; 96374; 96375; 99285; A9575; J1170; J2270; J2405; J7512; U0003; 82948; Q9967

== ENCOUNTER 2021-06-22 18:03 | Emergency (ER) | payer OTHER ==
[~2021-06-22] VITALS: Ht 160 cm; Wt 52.2 kg
[2021-06-22] MEDS ORDERED: MORPHINE SULFATE 4 MG/ML SYRINGE IVP ONE ×2 (19:45→22:15)
[2021-06-22] MEDS ORDERED: ONDANSETRON HCL 4 MG/2 ML VIAL IVP ONE (19:45)
[2021-06-22 20:12] LABS: BASOPHILS % (AUTO) 0.6 % (0.0-2.0); EOSINOPHILS % (AUTO) 0.5 % (1.0-6.0); HEMATOCRIT 28.8 % (36-46); HEMOGLOBIN 9.4 g/dL (12.0-16.0); LYMPHOCYTES # (AUTO) 2.1 K/uL (1.0-4.8); LYMPHOCYTES % (AUTO) 37.2 % (22.0-44.0); MEAN CORPUSCULAR HEMOGLOBIN 30.4 pg (26.0-34.0); MEAN CORPUSCULAR HGB CONC 32.6 G/dL (31.0-37.0); MEAN CORPUSCULAR VOLUME 93 fL (80-100); MONOCYTES # (AUTO) 0.4 K/uL (0.1-1.0); MONOCYTES % (AUTO) 7.5 % (2.0-9.0); NEUTROPHILS # (AUTO) 3.1 K/uL (1.8-7.7); NEUTROPHILS % (AUTO) 54.2 % (40.0-70.0); PLATELET COUNT (AUTO) 315 K/uL (150-450); RED BLOOD CELL COUNT(AUTO) 3.09 MIL/uL (4.00-5.20); RED CELL DISTRIBUTION WIDTH 16.9 % (11.5-14.5)
[2021-06-22 20:30] LABS: ANION GAP 6 mmol/L (8-16); CALCIUM, TOTAL 9.3 mg/dL (8.8-10.5); CARBON DIOXIDE 25 mmol/L (22-29); CHLORIDE 103 mmol/L (98-107); CREATININE 0.84 mg/dL (0.60-1.30); GLOMERULAR FILTR. RATE CALC > 60 mL/min (>60); GLUCOSE,RANDOM 72 mg/dL (70-110); POTASSIUM 3.6 mmol/L (3.5-5.1); SODIUM SERUM 134 mmol/L (136-145); UREA NITROGEN, BLOOD 18 mg/dL (7-18)
[2021-06-22 20:46] LABS: ALANINE AMINOTRANSFERASE 19 U/L (12-78); ALBUMIN 2.6 g/dL (3.4-5.0); ALKALINE PHOSPHATASE 74 U/L (46-116); ASPARTATE AMINOTRANSFERASE 21 U/L (15-37); BILIRUBIN,TOTAL 0.3 mg/dL (0.1-1.0); TOTAL PROTEIN, SERUM 12.4 g/dL (6.4-8.2)
[2021-06-22] MEDS ORDERED: KETOROLAC TROMETHAMINE 30 MG/ML VIAL IVP ONE (21:30)
[2021-06-22 22:06] VITALS: BP 176/106
== END 2021-06-22 22:35 | disposition home or self-care (01) ==
LOC: EMS 18:05
DX: S20.211A Contusion of right front wall of thorax, initial encounter (principal); G89.29 Other chronic pain; M54.5 Low back pain; I10 Essential (primary) hypertension; K21.9 Gastro-esophageal reflux disease without esophagitis; J44.9 Chronic obstructive pulmonary disease, unspecified; Z87.891 Personal history of nicotine dependence; Z88.0 Allergy status to penicillin; Z88.6 Allergy status to analgesic agent; Z88.8 Allergy status to other drugs, medicaments and biological substances; Z79.899 Other long term (current) drug therapy; W18.39XA Other fall on same level, initial encounter; Y93.89 Activity, other specified; Y92.89 Other specified places as the place of occurrence of the external cause; Y99.8 Other external cause status
CPT/HCPCS: 36415; 71101; 80053; 84484; 85025; 93005; 96374; 96375; 96376; 99285; J1885; J2270; J2405

== ENCOUNTER 2021-06-26 17:58 | Emergency (ER) | payer OTHER ==
[~2021-06-26] VITALS: Ht 157.5 cm; Wt 49.1 kg
[2021-06-26] MEDS ORDERED: AmLODIPine BESYLATE 5 MG TABLET PO ONE (19:00)
[2021-06-26] MEDS ORDERED: MORPHINE SULFATE 4 MG/ML SYRINGE IM ONE (19:00)
[2021-06-26 19:24] LABS: BASOPHILS % (AUTO) 0.3 % (0.0-2.0); EOSINOPHILS % (AUTO) 1.9 % (1.0-6.0); HEMOGLOBIN 9.7 g/dL (12.0-16.0); LYMPHOCYTES # (AUTO) 2.8 K/uL (1.0-4.8); LYMPHOCYTES % (AUTO) 42.9 % (22.0-44.0); MEAN CORPUSCULAR HEMOGLOBIN 30.9 pg (26.0-34.0); MEAN CORPUSCULAR HGB CONC 33.3 G/dL (31.0-37.0); MEAN CORPUSCULAR VOLUME 93 fL (80-100); MONOCYTES # (AUTO) 0.6 K/uL (0.1-1.0); MONOCYTES % (AUTO) 8.5 % (2.0-9.0); NEUTROPHILS # (AUTO) 3.1 K/uL (1.8-7.7); NEUTROPHILS % (AUTO) 46.4 % (40.0-70.0); PLATELET COUNT (AUTO) 436 K/uL (150-450); RED BLOOD CELL COUNT(AUTO) 3.12 MIL/uL (4.00-5.20); RED CELL DISTRIBUTION WIDTH 16.6 % (11.5-14.5)
[2021-06-26 19:34] LABS: ANION GAP 5 mmol/L (8-16); CARBON DIOXIDE 27 mmol/L (22-29); CHLORIDE 103 mmol/L (98-107); CREATININE 0.98 mg/dL (0.60-1.30); GLOMERULAR FILTR. RATE CALC > 60 mL/min (>60); GLUCOSE,RANDOM 117 mg/dL (70-110); POTASSIUM 3.6 mmol/L (3.5-5.1); SODIUM SERUM 135 mmol/L (136-145); UREA NITROGEN, BLOOD 19 mg/dL (7-18)
[2021-06-26 19:48] LABS: ALANINE AMINOTRANSFERASE 15 U/L (12-78); ALBUMIN 2.6 g/dL (3.4-5.0); ALKALINE PHOSPHATASE 86 U/L (46-116); ASPARTATE AMINOTRANSFERASE 11 U/L (15-37); BILIRUBIN,TOTAL 0.1 mg/dL (0.1-1.0); TOTAL PROTEIN, SERUM 12.4 g/dL (6.4-8.2)
[2021-06-26] MEDS ORDERED: HYDROCODONE/ACETAMINOPHEN 5-325 MG TABLET PO ONE ×2 (20:30→20:45)
[2021-06-26 20:48] VITALS: BP 188/98
== END 2021-06-26 21:01 | disposition home or self-care (01) ==
LOC: EMS 18:00
DX: M48.56XA Collapsed vertebra, not elsewhere classified, lumbar region, initial encounter for fracture (principal); I10 Essential (primary) hypertension; J44.9 Chronic obstructive pulmonary disease, unspecified; K21.9 Gastro-esophageal reflux disease without esophagitis; Z88.0 Allergy status to penicillin; Z88.6 Allergy status to analgesic agent; Z88.8 Allergy status to other drugs, medicaments and biological substances; Z79.899 Other long term (current) drug therapy; Z87.891 Personal history of nicotine dependence
CPT/HCPCS: 36415; 72100; 80053; 85025; 96372; 99284; J2270

== ENCOUNTER 2021-07-16 11:17 | Emergency (ER) | payer OTHER ==
[~2021-07-16] VITALS: Ht 157.5 cm; Wt 50.0 kg
[2021-07-16] MEDS ORDERED: LIDOCAINE 5% TRANSDERMAL PATCH TD ONE (13:00)
[2021-07-16 15:18] VITALS: BP 186/92
== END 2021-07-16 15:19 | disposition home or self-care (01) ==
LOC: EMS 11:24
DX: G89.29 Other chronic pain (principal); M54.50 Low back pain, unspecified; I10 Essential (primary) hypertension; J44.9 Chronic obstructive pulmonary disease, unspecified; K21.9 Gastro-esophageal reflux disease without esophagitis; Z87.891 Personal history of nicotine dependence; Z79.899 Other long term (current) drug therapy; Z88.6 Allergy status to analgesic agent; Z88.0 Allergy status to penicillin
CPT/HCPCS: 99282; 99283

== ENCOUNTER 2021-09-20 13:41 | Emergency (ER) | payer OTHER ==
[~2021-09-20] VITALS: Ht 157.5 cm; Wt 49.0 kg
[2021-09-20 14:59] LABS: BASOPHILS % (AUTO) 0.5 % (0.0-2.0); EOSINOPHILS % (AUTO) 4.4 % (1.0-6.0); HEMATOCRIT 25.6 % (36-46); HEMOGLOBIN 8.7 g/dL (12.0-16.0); LYMPHOCYTES # (AUTO) 1.7 K/uL (1.0-4.8); LYMPHOCYTES % (AUTO) 37.7 % (22.0-44.0); MEAN CORPUSCULAR HGB CONC 33.9 G/dL (31.0-37.0); MEAN CORPUSCULAR VOLUME 89 fL (80-100); MONOCYTES # (AUTO) 0.3 K/uL (0.1-1.0); MONOCYTES % (AUTO) 7.2 % (2.0-9.0); NEUTROPHILS # (AUTO) 2.3 K/uL (1.8-7.7); NEUTROPHILS % (AUTO) 50.2 % (40.0-70.0); PLATELET COUNT (AUTO) 303 K/uL (150-450); RED BLOOD CELL COUNT(AUTO) 2.89 MIL/uL (4.00-5.20)
[2021-09-20 15:15] LABS: ANION GAP 4 mmol/L (8-16); CALCIUM, TOTAL 9.2 mg/dL (8.8-10.5); CARBON DIOXIDE 31 mmol/L (22-29); CHLORIDE 104 mmol/L (98-107); CREATININE 0.88 mg/dL (0.60-1.30); GLOMERULAR FILTR. RATE CALC > 60 mL/min (>60); GLUCOSE,RANDOM 84 mg/dL (70-110); POTASSIUM 3.4 mmol/L (3.5-5.1); SODIUM SERUM 139 mmol/L (136-145); UREA NITROGEN, BLOOD 14 mg/dL (7-18)
[2021-09-20 15:30] LABS: ALANINE AMINOTRANSFERASE 13 U/L (12-78); ALBUMIN 2.6 g/dL (3.4-5.0); ALKALINE PHOSPHATASE 66 U/L (46-116); ASPARTATE AMINOTRANSFERASE 21 U/L (15-37); BILIRUBIN,TOTAL 0.2 mg/dL (0.1-1.0); TOTAL PROTEIN, SERUM 12.3 g/dL (6.4-8.2)
[2021-09-20 15:41] LABS: B-TYPE NATRIURETIC PEPTIDE 383 pg/mL (0-100)
[2021-09-20 15:45] VITALS: BP 154/84
[2021-09-20] MEDS ORDERED: MORPHINE SULFATE 4 MG/ML SYRINGE IVP ONE (16:00)
[2021-09-20] MEDS ORDERED: FUROSEMIDE 40 MG/4 ML VIAL IVP ONE (16:00)
[2021-09-20] MEDS ORDERED: ONDANSETRON HCL 4 MG/2 ML VIAL IVP ONE (16:00)
[2021-09-20] MEDS ORDERED: MethylPREDNISolone SOD SUCC 125 MG/2 ML VIAL IVP ONE (16:00)
== END 2021-09-20 17:14 | disposition home or self-care (01) ==
LOC: EMS 13:41
DX: J44.1 Chronic obstructive pulmonary disease with (acute) exacerbation (principal); R60.0 Localized edema; D50.0 Iron deficiency anemia secondary to blood loss (chronic); E87.6 Hypokalemia; E88.09 Other disorders of plasma-protein metabolism, not elsewhere classified; I10 Essential (primary) hypertension; I25.2 Old myocardial infarction; Z88.6 Allergy status to analgesic agent; Z88.0 Allergy status to penicillin; Z79.899 Other long term (current) drug therapy
CPT/HCPCS: 71045; 80053; 83880; 84484; 85025; 93005; 96374; 96375; 99285; J1940; J2270; J2930; J2405